=== PATIENT | male | born 1980 | race Caucasian/White ===

== ENCOUNTER 2018-11-01 12:39 | Emergency (ER) | payer OTHER ==
[~2018-11-01] VITALS: Ht 190.5 cm; Wt 104.3 kg
--- NOTE | 2018-11-01 12:55 | NUR ---
HILDA MCCALL AT BEDSIDE FOR MSE
--- NOTE | 2018-11-01 13:08 | NUR ---
Patient discharged to home in stable conditon. Written and verbal after care instructions given. Patient verbalizes understanding of instructions. ALL BELONGINGS W/ PT. PT SELF-AMBULATED W/O DIFFICULTY.
[2018-11-01 13:09] VITALS: BP 136/72
== END 2018-11-01 13:11 | disposition home or self-care (01) ==
LOC: ER 12:39
DX: S50.862A Insect bite (nonvenomous) of left forearm, initial encounter (principal); L08.9 Local infection of the skin and subcutaneous tissue, unspecified; W57.XXXA Bitten or stung by nonvenomous insect and other nonvenomous arthropods, initial encounter; Y93.89 Activity, other specified; Y92.89 Other specified places as the place of occurrence of the external cause; Y99.8 Other external cause status
CPT/HCPCS: A4663